=== PATIENT | female | born 1995 | race Caucasian/White ===

== ENCOUNTER → 2025-10-11 07:59 | Outpatient (CLI) | payer OTHER, SELFPAY ==
--- NOTE | 2025-10-11 08:01 | DI.US.S_ITS ---
PROCEDURE: US PELVIC COMPLETE INDICATIONS: NEXPLANON REMOVED 2 YRS AGO ?RETAINED/PELVIC PAIN TECHNIQUE: Real-time scanning was performed of the pelvic organs, with image documentation. Patient declined endovaginal scanning COMPARISON: None. FINDINGS: Uterus: 6.2 x 2.7 x 4.6 cm. Endometrium measures 4 mm. IUD is seen in expected position. Ovaries: Right ovary was not seen. Left ovary is enlarged, measuring 32 mL, with a simple appearing 4.1 x 3.6 cm cyst Other: No pathologic free abdominal or pelvic fluid. IMPRESSION: IUD is seen in expected position within the endometrium. Enlarged left ovary, with a 4.1 cm simple appearing cyst. Transabdominal only pelvic ultrasound. Dictated by: Jr Andre M.D. on 10/11/2025 at 9:11 Approved by: Jr Andre M.D. on 10/11/2025 at 9:13
--- NOTE | 2025-10-11 08:01 | DI.US.S_ITS ---
PROCEDURE: US EXTREMITY NONVASC UPPER LT INDICATIONS: NEXPLANON REMOVED 2 YRS AGO ?RETAINED/PELVIC PAIN TECHNIQUE: Real-time scanning was performed of the left upper arm area pain , with image documentation. COMPARISON: None. FINDINGS: Normal appearing subcutaneous soft tissues and fat noted. No sonographically apparent foreign body detected. No mass, collection or adenopathy. IMPRESSION: No foreign body identified. If symptoms persist or remain concerning, recommend dedicated radiographs. Dictated by: Sienna Mancuso M.D. on 10/11/2025 at 8:57 Approved by: Sienna Mancuso M.D. on 10/11/2025 at 9:00
== END ==
LOC: US 08:00
PROVIDERS: PCP Family Medicine; Referring Provider Family Medicine; Visit Provider Family Medicine
DX: Z30.46 Encounter for surveillance of implantable subdermal contraceptive (principal); M79.602 Pain in left arm; R10.20 Pelvic and perineal pain unspecified side; Z30.431 Encounter for routine checking of intrauterine contraceptive device; N83.8 Other noninflammatory disorders of ovary, fallopian tube and broad ligament; N83.202 Unspecified ovarian cyst, left side
CPT/HCPCS: 76856; 76882; 93976